=== PATIENT | female | born 1980 | race Caucasian/White ===

== ENCOUNTER → 2016-02-19 | Outpatient (CLI) | payer BC ==
[~2016-02-19] MED LIST: CALCTAB5 PO; PRENTAB26 PO
[2016-02-19 10:01] LABS: HEMATOCRIT 35.6 % (37-47)
[2016-02-19 10:27] LABS: GTGD 50 Grams
[2016-02-19 12:24] LABS: URINE APPEARANCE CLEAR (CLEAR); URINE BILIRUBIN NEG (NEG); URINE COLOR YELLOW; URINE EPITHELIAL CELL AUTO >30 /lpf (0-5); URINE NITRITE NEG (NEG); URINE SPECIFIC GRAVITY 1.015 (1.000-1.030); UROBILINOGEN NEG (NEG)
[2016-02-19 12:26] LABS: MANUAL MICROSCOPIC REQUIRED? NO; REVIEW REQ? NO
== END | disposition home or self-care (01) ==
LOC: C.LAB1850 09:07
PROVIDERS: ATTEND Obstetrics & Gynecology
DX: O09.43 Supervision of pregnancy with grand multiparity, third trimester (principal)

== ENCOUNTER → 2016-04-12 | Outpatient (CLI) | payer BC, OTHER | END | disposition home or self-care (01) | LOC: C.LABSPEC 16:09 | PROVIDERS: ATTEND Obstetrics & Gynecology | DX: O09.43 Supervision of pregnancy with grand multiparity, third trimester (principal); Z3A.00 Weeks of gestation of pregnancy not specified ==

== ENCOUNTER 2016-05-11 15:08 | Inpatient (IN) | payer BC ==
[~2016-05-11] VITALS: Ht 165.1 cm; Wt 85.9 kg
[~2016-05-11 15:08] MED LIST changes: -PRENTAB26 PO
[2016-05-12] MEDS ORDERED: LACTATED RINGER'S 1000ML 1,000 ML IV PRN (08:35)
[2016-05-12] MEDS ORDERED: LACTATED RINGER'S 1000ML 1,000 ML IV SCH ×2 (08:35→23:14)
[2016-05-12 09:24] LABS: HEMATOCRIT 35.9 % (37-47); MEAN CELL VOLUME 90.7 fL (80-100); MEAN CORPUSCULAR HEMOGLOBIN 33.1 pg (25-34); MEAN CORPUSCULAR HGB CONC 36.5 g/dl (32-36); MEAN PLATELET VOLUME 10.7 fL (7.4-10.4); PLATELET COUNT 154 K/uL (130-400); RED BLOOD COUNT 3.96 M/uL (4.2-5.4); WHITE BLOOD COUNT 8.72 K/uL (4.8-10.8)
[2016-05-12 09:55] VITALS: Ht 165.1 cm; Wt 85.9 kg
[2016-05-12] MEDS ORDERED: PRENTAB26 PO (09:56)
--- NOTE | 2016-05-12 10:28 | Medical Student: [facility] ---
Med Student History & Physical Date of Service May 12, 2016. Chief Complaint Induction to try for History of Present Illness Source: patient, partner, clinic records, hospital records This is a 35 year old at 40 weeks 2 days GA as established by LMP and confirmed by first trimester ultrasound who presents for induction for planned . She reports that this has been uncomplicated. She reports frequent movement, no leakage of fluid, elisa dong contractions , and mild spotting following cervix check yesterday. At cervical check, Dr. Wang found her cervix to be unfavorable for delivery, but was amenable to attempted induction of labor. She denies any other complaints. Labs: Blood type: A+, with negative antibody screen HCT/HGB: 35.9%/13.1 g/dl Pap: Negative Rubella: Immune VDRL/RPR: Nonreactive HBsAg: Negative HIV: Negative Chlamydia: Negative Gonorrhea: Negative Diabetes screen: Negative GBS: Negative OB History G1: w/epidural at 40 weeks of viable female weighing 6 lbs 6 oz following 23 hours of labor. Patient was placed on bedrest for dehydration/malnutrition and hospitalized twice. G2: w/epidural at 39 weeks of viable male weighing 5 lbs 13 oz following 15 hours of labor. No complications. G3: w/epidural at 39 weeks of viable male weighing 6 lbs 6 oz following 8 hours of labor. No complications. G4: Emergency w/o anesthesia at 39 weeks of viable male weighing 6 lbs 0 oz following 7 hours of labor. due to non-reassuring heart tones and possible cord prolapse. G5: Spontaneous at 6 weeks. G6: Spontaneous at 7 weeks. G7: at 39 weeks 6 days of viable male weighing 7 lbs 1 oz. No complications. 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 Periods have always been heavy and were irregular prior to first . Since first child's they have occurred every 30-32 days and have been heavy, lasting for 5-7 days. Denies any history of STDs. Last pap smear was 09/2015, and she denies any abnormal pap smears. No other gynecologic procedures or surgeries. Past Medical History No significant past medical history. Only medication is vitamins. Past Surgical History Emergency , wisdom teeth removal, breast lumpectomy (benign), laparoscopic cholecystectomy Family History Father: Possible hypercoagulable state. Has had heart attack and stroke and is on anticoagulation. 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) Allergies Coded Allergies: No Known Allergies (Verified , 05/12/16) Home Medications Multivit/Min/Iron/Fol Ac/Pren ( Vitamin), 1 TAB PO DAILY Review of Systems Eyes: No worsening of vision Respiratory: No shortness of breath Cardiovascular: No chest pain Abdomen: No pain Physical Exam General Appearance: WD/WN, no apparent distress Respiratory/Chest: lungs clear, normal breath sounds Cardiovascular: regular rate, rhythm, no murmur Abdomen / GI: non tender, soft, + pertinent finding (gravid) Extremities: no calf tenderness, no pedal edema Neurologic/Psych: alert, oriented x 3 Monitoring External Monitor: Baseline 145, moderate variability, accelerations present, no decelerations Tocodynamometer: No contractions seen Laboratory Results 05/12/16 09:07 Test 05/12/16 09:07 Red Blood Count 3.96 M/uL (4.2-5.4) Mean Corpuscular Volume 90.7 fL (80-100) Mean Corpuscular Hemoglobin 33.1 pg (25-34) Mean Corpuscular Hemoglobin Concent 36.5 g/dl (32-36) RDW Standard Deviation 44.1 fL (36.4-46.3) RDW Coefficient of Variation 13.4 % (11.5-14.5) Mean Platelet Volume 10.7 fL (7.4-10.4) Assessment and Plan 35 year old , 40 weeks 2 days GA for IOL to attempt , Tracing Category I (HR 145, moderate variability, present accelerations, absent decelerations). Patient is not yet in labor. Continue external monitoring. Cervical duarte catheter is in place to induce cervical ripening. Will check cervix 4 hours after placement. Plan to begin pitocin and rupture membranes if cervix is favorable. Will also place epidural at that time. This is her second , but we will have anesthesia standing by for any complications that could lead to .
[2016-05-12] MEDS ORDERED: EpHEDrine SULFATE INJ 50 MG/ML AMP ONE (13:30)
[2016-05-12] MEDS ORDERED: FENTANYL CITRATE INJ 50 MCG/1 ML 2 ML VIAL ONE (13:30)
[2016-05-12] MEDS ORDERED: FENTANYL 2MCG/ML ROPIV 1.25MG/ML 100ML BAG EPI ONE (13:30)
[2016-05-12] MEDS ORDERED: BUPIVACAINE 0.25% 30 ML VIAL ONE (13:30)
[2016-05-12] MEDS ORDERED: NALOXONE HCL INJ 1 MG in SODIUM CHLORIDE 0.9% 1000ML 1,000 ML IV PRN (14:19)
[2016-05-12] MEDS ORDERED: LACTATED RINGER'S 1000ML 500 ML IV PRN ×2 (14:19→16:30)
[2016-05-12] MEDS ORDERED: ONDANSETRON INJ 2 MG/ML 2 ML VIAL ONE (14:24)
[2016-05-12] MEDS ORDERED: DiphenhydrAMINE HCL 50 MG/ML VIAL IV PRN (14:30)
[2016-05-12] MEDS ORDERED: NALOXONE HCL INJ 0.4 MG/1 ML VIAL/CARP IV PRN (14:30)
[2016-05-12] MEDS ORDERED: EpHEDrine SULFATE INJ 50 MG/ML AMP IV PRN (14:30)
[2016-05-12] MEDS ORDERED: NALBUPHINE HCL INJ 10 MG/ML AMP IV PRN (14:30)
[2016-05-12] MEDS ORDERED: ONDANSETRON INJ 2 MG/ML 2 ML VIAL IV PRN (14:30)
[2016-05-12] MEDS ORDERED: OXYTOCIN 30 UNITS/500ML NSS IV PRN ×2 (16:30→23:15)
[2016-05-12] MEDS: FENTANYL 2MCG/ML ROPIV 1.25MG/ML 100ML BAG EPI PRN ×3 (19:22→22:37)
[2016-05-12] MEDS ORDERED: CALCIUM CARBONATE 500 MG CHEWABLE PO PRN (20:15)
[2016-05-12] MEDS ORDERED: CALCIUM CARBONATE 500 MG CHEWABLE ONE (20:20)
[2016-05-12] MEDS ORDERED: LIDOCAINE HCL 2% JELLY 30 ML TUBE EXT ONE (22:09)
[2016-05-12] MEDS ORDERED: ACETAMINOPHEN 325 MG TAB PO PRN (23:15)
[2016-05-12] MEDS ORDERED: SUPERCREAM 0.870 % 15GM JAR EXT PRN (23:15)
[2016-05-12] MEDS ORDERED: BENZOCAINE 20% AER SPR 82.5 GM CAN EXT PRN (23:15)
[2016-05-12] MEDS ORDERED: HYDROCORTISONE ACETATE 25 MG SUPP PR PRN (23:15)
[2016-05-12] MEDS ORDERED: LANOLIN OINT EXT PRN ×2 (23:15)
[2016-05-12] MEDS ORDERED: OXYCODONE/ACETAMINOPHEN 5-325 TAB PO PRN (23:15)
[2016-05-13] VITALS (7 sets, daily range): BP systolic 97–113; BP diastolic 60–71; PULSE 72–104; TEMP 36.3–37.3; O2SAT 99
--- NOTE | 2016-05-13 01:17 | DELIVERY SUMMARY ---
DATE OF OPERATION: 05/12/2016 PREOPERATIVE DIAGNOSES: 1. Renteria intrauterine at 40-2/7 weeks. 2. Prior section. 3. Desires vaginal after . 4. Group B strep negative. POSTOPERATIVE DIAGNOSES: Same. PROCEDURE: Vaginal after . SURGEON: Dr. Tellez. RUG DYER HELPER: None. ESTIMATED BLOOD LOSS: 250. FINDINGS: Infant in the occiput anterior position. Placenta spontaneous and intact with a 3-vessel cord. No lacerations requiring repair. COMPLICATIONS: None. DISPOSITION: Stable in labor and delivery. DESCRIPTION: Gege is a 35-year-old 8, para 5, who presents for induction of labor at 40-2/7 weeks gestational age. Her induction was begun with a consent process for vaginal after with a discussion of the risks associated with both that and induction of labor. She and her partner consented to proceed and requested to trial with induction instead of moving to . A Morgan bulb was placed. This was ultimately passed through the cervix and Pitocin was started, after artificial rupture of membranes was not sufficient to begin labor. She did become completely dilated with an urge to push and was called to the bedside. She was prepped for delivery and through a few pushing efforts, she was able to bring the head to delivery. The head was noted to be in an occiput anterior position, delivered easily followed by both shoulders and the remainder of the infant with no difficulty. The was placed on the maternal abdomen, the cord was doubly clamped and cut by the father of the baby. It was noted to be making respiratory efforts and moving all four extremities equally immediately after delivery. The placenta then delivered spontaneously and was noted to be intact with a 3-vessel cord. It was somewhat petit and also appeared to be circumvallate and will, therefore, be sent for examination. There were no lacerations requiring repair and at the completion of delivery, the fundus was firm, well contracted and lochia was minimal. I attest to the content of the Intraoperative Record and any orders documented therein. Any exceptions are noted below. MTDD
[2016-05-13] MEDS: IBUPROFEN 600 MG TAB PO PRN ×4 (01:53→17:00)
--- NOTE | 2016-05-13 07:31 | Anesthesia Procedure Note ---
Anesthesia Epidural Removal Nt Date & Time May 13, 2016 at 07:31 Vital Signs Pain Intensity: 2 Vital Signs Past 12 Hours Date Time Temp Pulse Resp B/P Pulse Ox O2 Delivery O2 Flow Rate FiO2 05/13/16 07:24 36.6 72 18 97/61 99 Room Air 05/13/16 04:40 36.3 90 19 100/60 Room Air 05/13/16 01:40 Room Air 05/13/16 01:40 37.3 104 20 104/62 Room Air Notes Mental Status: alert / awake / arousable, participated in evaluation Nausea / Vomiting: adequately controlled Pain: adequately controlled Airway Patency, RR, SpO2: stable & adequate BP & HR: stable & adequate Hydration State: stable & adequate Neuraxial Anesthesia: was administered Anesthetic Complications: no major complications apparent, pt satisfied with anesthetic care Epidural: removed without complications, with tip intact
--- NOTE | 2016-05-13 07:44 | Progress Note ---
Subjective May 13, 2016. Subjective conversation w/ patient, physical exam Ambulation: ambulating normally Voiding: no voiding problems Passing Gas: Yes Diet Tolerance: Regular Diet Lochia: Small Feeding Type: Breast Feeding Review of Systems Constitutional: No chills, No fever Respiratory: No cough, No shortness of breath Cardiac: No chest pain, No claudication Objective Vital Signs Date Time Temp Pulse Resp B/P Pulse Ox O2 Delivery O2 Flow Rate FiO2 05/13/16 07:24 36.6 72 18 97/61 99 Room Air 05/13/16 04:40 36.3 90 19 100/60 Room Air 05/13/16 01:40 Room Air 05/13/16 01:40 37.3 104 20 104/62 Room Air Physical Exam General Appearance: WELL-APPEARING, NO APPARENT DISTRESS Respiratory/Chest: lungs clear, no accessory muscle use Cardiovascular: regular rate, rhythm, no murmur Fundus: Firm, Non-Tender, Relation to Umbilicus (1 cm below) Extremities: non-tender, no calf tenderness Laboratory Results Last 24 Hours Test 05/12/16 09:07 05/13/16 04:44 White Blood Count 8.72 K/uL Red Blood Count 3.96 M/uL Hemoglobin 13.1 g/dL Hematocrit 35.9 % Mean Corpuscular Volume 90.7 fL Mean Corpuscular Hemoglobin 33.1 pg Mean Corpuscular Hemoglobin Concent 36.5 g/dl RDW Standard Deviation 44.1 fL RDW Coefficient of Variation 13.4 % Platelet Count 154 K/uL Mean Platelet Volume 10.7 fL Assessment and Plan Post- Day#: 1 Continue Routine Care: s/p Day 1 - vitals reviewed and wnl - Hgb 13.1 yesterday - blood: A+, GBS-, Rubella immune - encourage ambulation, monitor lochia, and encourage breast feeding - patient doing well clinically - CONTINUE ROUTINE POST CARE Resident Physician Supervision Note: I was present with Dr. Melendez during the history and exam. I discussed the case with the resident and agree with the findings and plan as documented in the note. Any exceptions or clarifications are listed here: [None] Documented By: Malathi Tellez
[2016-05-13] MEDS: DOCUSATE SODIUM 100 MG CAP PO SCH ×2 (07:47→20:15)
[2016-05-13] MEDS: PRENATAL VITAMIN TAB PO SCH (07:47)
[2016-05-13 08:38] LABS: HEMATOCRIT 34.1 % (37-47)
[2016-05-13] MEDS ORDERED: DIPHTHERIA/TETANUS/PERTUSSIS 0.5 ML SYR/VIAL IM. ONE (09:00)
--- NOTE | 2016-05-13 10:54 | Anesthesiology Progress Note ---
Anesthesia Progress Note Date of Service May 13, 2016. Progress Notes The patient had concerns about her anesthetic. I spoke to the patient and listened to her concerns. I told her that they would be addressed. She appeared to be satisfied with my response. She is otherwise doing well.
[2016-05-14 00:45] VITALS: BP 93/63; PULSE 83; TEMP 36.6
[2016-05-14] MEDS: IBUPROFEN 600 MG TAB PO PRN ×2 (02:37→08:26)
--- NOTE | 2016-05-14 07:15 | Progress Note ---
Subjective May 14, 2016. Subjective conversation w/ patient, physical exam Ambulation: ambulating normally Voiding: no voiding problems Passing Gas: Yes Diet Tolerance: Regular Diet Lochia: Small Feeding Type: Breast Feeding Review of Systems Constitutional: + problem reported (lower back pain), No chills, No fever Respiratory: No cough, No shortness of breath Cardiac: No chest pain, No claudication Objective Vital Signs Date Time Temp Pulse Resp B/P Pulse Ox O2 Delivery O2 Flow Rate FiO2 05/14/16 00:45 Room Air 05/14/16 00:45 36.6 83 20 93/63 Room Air 05/13/16 19:45 36.5 98 19 102/70 Room Air 05/13/16 16:55 36.8 90 20 113/71 05/13/16 12:00 36.4 88 24 105/69 05/13/16 08:00 36.4 74 20 98/65 05/13/16 07:24 36.6 72 18 97/61 99 Room Air Physical Exam General Appearance: WELL-APPEARING, NO APPARENT DISTRESS Respiratory/Chest: lungs clear, no accessory muscle use Cardiovascular: regular rate, rhythm, no murmur Fundus: Firm, Non-Tender, Relation to Umbilicus (AT UMBILICUS) Extremities: non-tender, no calf tenderness Laboratory Results Last 24 Hours Test 05/13/16 08:10 Hemoglobin 11.9 g/dL Hematocrit 34.1 % Assessment and Plan Post- Day#: 2 Continue Routine Care: s/p Day 2 - vitals reviewed and wnl - Hgb 11.9 yesterday - blood: A+, GBS-, Rubella immune - encourage ambulation, monitor lochia, and encourage breast feeding - patient doing well clinically - patient counselled on discharge instructions - PATIENT DISCHARGED TODAY Resident Physician Supervision Note: I interviewed and examined the patient. Discussed with Dr. Melendez and agree with findings and plan as documented in the note. Any exceptions or clarifications are listed here: Doing well. Plan d/c. Instructions given. Documented By: Tejal Mendoza
[2016-05-14 08:05] VITALS: BP 114/67; PULSE 91; TEMP 36.6; O2SAT 100
[2016-05-14] MEDS: DOCUSATE SODIUM 100 MG CAP PO SCH (08:26)
[2016-05-14] MEDS: PRENATAL VITAMIN TAB PO SCH (08:26)
--- NOTE | 2016-05-14 08:31 | Discharge Instructions ---
Discharge Instructions Date of Service May 14, 2016. Admission Reason for Admission: Induction Discharge Discharge Diagnosis / Problem: Spontaneous Vaginal Delivery Discharge Goals Goal(s): Routine recovery after delivery Medications Continue Dispensed Medications: supercream, dermaplast, tucks, lansinoh Activity Recommendations Activity Limitations: per Instructions/Follow-up section . Instructions / Follow-Up Instructions / Follow-Up ACTIVITY RECOMMENDATIONS: * Gradual return to full activity over the next 2-3 weeks. * No lifting - nothing heavier than baby over the next 2-3 weeks. * Do not engage in vigorous exercise, sexual activity or sports until cleared by your physician. * Do not drive or operate any motorized equipment until cleared by your physician. * You may shower/bathe daily. MEDICATIONS: For discomfort or pain, you may use Acetaminophen (Tylenol), Ibuprofen (Advil), or Naproxen (Aleve) following the package directions. For constipation you may use Colace following the package directions. BREAST CARE: If you are not breast feeding: * Wear a supportive bra 24 hours a day for one to two weeks. * Avoid stimulating your breasts and nipples as much as possible during the first few weeks after delivery. * When taking a shower, have the warm water hit your back, not breasts. * When your breasts feel full, apply ice packs. Usually three to four times a day helps ease the discomfort. * Take a mild pain medication (Tylenol / Motrin) when you are uncomfortable. If breast feeding: * Use breast milk to lubricate nipples. Lansinoh cream may be used for sore nipples. You do not need to remove cream prior to breast feeding. If using a different brand of cream, check the label for directions regarding removal of cream prior to nursing. * Wear a supportive bra. * If having problems with breasts or breast feeding, call a relationship consultant or your health care provider. EPISIOTOMY CARE: After delivery, if you have an episiotomy (stitches), the following steps will ease discomfort and aid healing. * For the first 24 hours after delivery, place ice packs next to your episiotomy to help reduce swelling. * After the first 24 hour-period, sitz baths, either portable or in the tub, are suggested. A shower with a shower arm sprayed over the episiotomy may be comforting. * Tammi care should be done after each voiding and bowel movement. Squirt warm water from a plastic bottle over the perineum (region of the body between the anus and urinary opening) and pat dry. * Use Dermoplast to ease discomfort. Shake container. Hitchcock directly over the episiotomy. Place a Tucks on a clean sanitary pad next to your episiotomy. SPECIAL CARE INSTRUCTIONS: When you are discharged from the hospital, it is important for you to follow the instructions listed below: * During the first week at home, you should be able to care for yourself and your baby. In addition, the usual light household activities are encouraged. * Limit your activities to the way you feel. Do not try to clean the house or move furniture. Be sensible. * If you actively engage in sports and have done so up until the time of your delivery, you may resume these activities as soon as you feel able. This may take up to one month or even longer. Use good judgment. * Continue to take your vitamins for at least six weeks after the of your baby. * Your diet need not be limited unless you were on a special diet before your delivery. Breast-feeding mothers need around 2500 calories per day and at least 64-80 ounces of fluid per day (8 to 10 glasses). * You should eat foods from the four major food groups. Crash diets or fad diets are to be avoided. Eating lean meats, fresh fruits and vegetables, low-fat dairy products, high fiber foods and a regular exercise program, will help you get back to your pre- weight without putting your health at risk. * Constipation is sometimes a problem after delivery. Take a mild laxative as needed. If breast feeding, Milk of Magnesia is acceptable to use. You may use a suppository or Fleets enema if no episiotomy. * A daily shower or tub bath is suggested. Be sure to thoroughly and gently dry the perineum. * A bloody vaginal discharge will usually continue until around four weeks post . A small amount of bleeding may continue for as long as six weeks. Vaginal discharge changes from the bright red bleeding after delivery to pink then brownish and finally yellowish-pink before becoming white and disappearing. * Bleeding may increase with activity. Your first period may come in 4-8 weeks. If you are breast feeding, your period may be delayed even longer. * [place] (sex) can begin whenever both you and your partner feel comfortable and do not have any form of genital infection. It is recommended that you wait at least six weeks for internal and external healing to occur. If you have questions, please talk to your health care practitioner. A condom should be used to prevent infection and . * Foreplay, gentle intercourse and lubrication is very important the first several times to prevent pain. A water-based lubricant such as K-Y jelly or Astroglide may be used. * If you have RH negative blood and your baby is RH positive, you will receive RHOGAM by injection prior to discharge. The nurse will give you a card to keep with you that has the date and place that you received RHOGAM after delivery. * During your care, you had a Rubella screen done to check for the presence of rubella antibodies in your blood. If your test was negative, you will receive a Rubella vaccine prior to discharge. This vaccine may cause a fever, soreness at the injection site and flu-like symptoms. If these symptoms persist, notify your health care practitioner. is not advised for one month after a Rubella vaccine. * Verbalizes understanding of car seat law as reviewed with patient nursing. * Car Seat hand-out given and reviewed with patient by nursing. * Shaken baby information reviewed with patient by nursing. Call you doctor if: * Heavy bleeding (saturating several pads an hour) or passing clots the size of your fist. * A fever >101 degrees F (38.3 degrees C) on two occasions four hours apart and /or chills. * Unusual pain in the pelvic or vaginal areas. * "Baby Blues" lasting longer than two weeks. If you have any questions or concerns, call your health care practitioner at . FOLLOW UP VISIT: * Please call the office at to schedule a 6 week examination. It is important you keep this appointment. It is important for you to make arrangements for either yearly or twice yearly check-ups thereafter. Current Hospital Diet Patient's current hospital diet: Regular OB Diet Discharge Diet Recommended Diet: Regular Diet Pending Studies Studies pending at discharge: no Medical Emergencies . Who to Call and When: Medical Emergencies: If at any time you feel your situation is an emergency, please call 911 immediately. . Non-Emergent Contact Non-Emergency issues call your: Primary Care Provider, It Disaster Recovery Manager . . "Provider Documentation" section prepared by Otis Melendez. VTE Core Measure Inpt VTE Proph given/why not?: Treatment not indicated
[2016-05-14 09:30] VITALS: BP_DIAS 67; PULSE 91; TEMP 36.6
== END 2016-05-14 09:47 | disposition home or self-care (01) | DRG 775 ==
LOC: C.LD 05-12 07:35 → C.OBG 05-13 01:39
PROVIDERS: ADMIT Obstetrics & Gynecology; ATTEND Obstetrics & Gynecology
PROC: 10E0XZZ Delivery of Products of Conception, External Approach (ICD-10-PCS; principal; 2016-05-12)
PROC: 0U7C7ZZ Dilation of Cervix, Via Natural or Artificial Opening (ICD-10-PCS; principal; 2016-05-12)
PROC: 10907ZC Drainage of Amniotic Fluid, Therapeutic from Products of Conception, Via Natural or Artificial Opening (ICD-10-PCS; principal; 2016-05-12)
DX: O48.0 Post-term pregnancy (principal); Z37.0 Single live birth; O34.219 Maternal care for unspecified type scar from previous cesarean delivery; Z3A.40 40 weeks gestation of pregnancy